=== PATIENT | male | born 2005 | race Two or more races ===

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

== ENCOUNTER 2024-07-04 17:48 | Emergency (ER) | payer MEDICAID ==
[~2024-07-04] VITALS: Ht 180.3 cm; Wt 104.0 kg
[2024-07-04] MEDS: ACETAMINOPHEN 325 MG TABLET PO ONE (19:48)
[2024-07-04] MEDS: CEPHALEXIN MONOHYDRATE 500 MG CAPSULE PO ONE (21:47)
[2024-07-04] MEDS: POVIDONE-IODINE 10% 15 ML SOLUTION UD TP ONE (21:47)
[2024-07-04] MEDS: AMOX TR/POT CLAV 875 MG/125 MG TABLET PO ONE (21:50)
[2024-07-04] MEDS ORDERED: AMOX-457 PO (22:17)
[2024-07-04] MEDS ORDERED: CEPH-558 PO (22:17)
[2024-07-04] MEDS ORDERED: IBUP-1492 PO (22:17)
[2024-07-04] MEDS: LIDOCAINE 1% 10 ML VIAL ID ONE (22:28)
[2024-07-04 23:03] VITALS: BP 122/60; PULSE 72; RESP 16; TEMP 98.5; O2SAT 99
== END 2024-07-04 23:08 | disposition home or self-care (01) ==
LOC: EMS 17:48
DX: L02.811 Cutaneous abscess of head [any part, except face] (principal); Z91.013 Allergy to seafood
CPT/HCPCS: 99284; 10060; J3490; A4247